=== PATIENT | male | born 1995 | race Caucasian/White ===

== ENCOUNTER 2021-07-27 18:05 | Emergency (ER) | payer MEDICAID ==
[~2021-07-27] VITALS: Ht 180.3 cm; Wt 76.0 kg
[2021-07-27 19:42] LABS: BASOPHILS % (AUTO) 0.4 % (0-1); EOSINOPHILS % (AUTO) 0.4 % (0-6); HEMATOCRIT 41.8 % (42.0-52.0); HEMOGLOBIN 14.1 g/dl (14.0-17.9); LYMPHOCYTES # (AUTO) 1.8 X10'3 (1.1-4.8); LYMPHOCYTES % (AUTO) 20.7 % (21-51); MEAN CORPUSCULAR HEMOGLOBIN 30.7 PG (27.0-31.0); MEAN CORPUSCULAR HGB CONC 33.8 g/dL (33.0-36.5); MEAN CORPUSCULAR VOLUME 90.7 FL (78-98); MEAN PLATELET VOLUME 8.3 FL (7.4-10.4); MONOCYTES # (AUTO) 0.6 X10'3 (0-0.9); MONOCYTES % (AUTO) 6.6 % (2-12); NEUTROPHILS # (AUTO) 6.3 X10'3 (1.8-7.7); NEUTROPHILS % (AUTO) 71.9 % (42-75); PLATELET COUNT 302 X10'3 (140-440); RED BLOOD COUNT 4.61 X10'6 (4.70-6.10); RED CELL DISTRIBUTION WIDTH 12.3 % (11.5-14.5); WHITE BLOOD COUNT 8.8 X10'3 (4.5-11.0)
[2021-07-27 19:47] LABS: CLARITY,URINE CLEAR (Clear); COLOR,URINE YELLOW (Yellow); GLUCOSE, URINE NEGATIVE (Neg); KETONES,URINE NEGATIVE (Neg); LEUKOCYTE ESTERASE ,URINE NEGATIVE (Neg); NITRITES, URINE NEGATIVE (Neg); OCCULT BLOOD,URINE NEGATIVE (Neg); PROTEIN,URINE NEGATIVE (Neg); UROBILINOGEN,URINE 0.2 E.U/dL (0.2-1.0)
[2021-07-27 19:49] LABS: UA COLLECTION TYPE CLN CATCH MIDSTREAM
[2021-07-27 19:57] LABS: ALANINE AMINOTRANSFERASE 36 U/L (12-78); ALBUMIN 4.2 G/DL (3.4-5.0); ALBUMIN/GLOBULIN RATIO 1.2 (1.1-1.5); ALKALINE PHOSPHATASE 106 IU/L (46-116); ANION GAP 8 (8-16); ASPARTATE AMINO TRANSFERASE 15 U/L (10-37); BILIRUBIN,TOTAL 0.4 MG/DL (0.1-1.0); BLOOD UREA NITROGEN 6 MG/DL (7-18); BUN/CREATININE RATIO 6.8 (5.4-32.0); CALCIUM 8.8 MG/DL (8.5-10.1); CHLORIDE 104 MMOL/L (99-107); CREATININE 0.88 MG/DL (0.60-1.10); GLUCOSE 106 MG/DL (70-104); POTASSIUM 3.4 MMOL/L (3.5-5.1); SODIUM 142 MMOL/L (135-145); TOTAL CARBON DIOXIDE 30.1 MMOL/L (24-32); TOTAL PROTEIN 7.6 G/DL (6.4-8.2); eGFR > 90 ML/MIN
[2021-07-27 21:48] LABS: URINE AMPHETAMINE SCREEN NEGATIVE (Neg); URINE BARBITUATE SCREEN NEGATIVE (Neg); URINE BENZODIAZEPINES SCREEN NEGATIVE (Neg); URINE CANNABINOID SCREEN NEGATIVE (Neg); URINE COCAINE SCREEN NEGATIVE (Neg); URINE METHADONE SCREEN NEGATIVE (Neg); URINE OPIATE SCREEN NEGATIVE (Neg); URINE PHENCYCLIDINE SCREEN NEGATIVE (Neg)
[2021-07-28] MEDS ORDERED: traZODone 50mg tablet PO ONE ×2 (00:30→21:15)
--- NOTE | 2021-07-28 00:55 | NUR ---
PT ARRIVED FROM [facility] ACCOMPANIED BY HIS MOTHER. PT STATES HE IS HAVING S/I W/PLAN TO SHOOT HIMSELF, HOWEVER HE HAS NO GUNS. PT REPORTS HE HASNT SLEPT MORE THE A COUPLE OF HOURS OVER THE PAST FEW DAYS AND IS CURRENTLY NOT TAKING ANY MEDS. PT REQUESTS TO READ AND REPORTS ANXIETY. PT STATES HE HAS TAKEN XANAX FOR ANXIETY BUT NOT RECENTLY.
[2021-07-28] MEDS ORDERED: NO HOME MEDS (00:59)
--- NOTE | 2021-07-28 03:58 | NUR ---
PT CHANGED INTO GREEN SCRUBS SHORTLY AFTER ARRIVING FROM [facility] ER AND PTS MOTHER LEFT. PT TOOK TRAZODONE PRN AND WENT TO SLEEP. HE CONTINUES TO BE SLEEPING RR EVEN AND UNLABORED VISIBLE RISE AND FALL OF CHEST NOTED.
--- NOTE | 2021-07-28 06:02 | NUR ---
PT ASLEEP IN BED RR EVEN AND UNLABORED
--- NOTE | 2021-07-28 07:50 | NUR ---
REPORT RECEIVED FROM RASHAD BAUTISTA. PATIENT RECEIVED SLEEPING IN HIS BED WITH NO S/S OF DISTRESS. NOTED RISE AND FALL OF CHEST. WILL CONTINUE TO MONITOR.
--- NOTE | 2021-07-28 08:36 | NUR ---
PACKET FAXED TO [facility] OFFICE
--- NOTE | 2021-07-28 09:30 | NUR ---
PATIENT WAS RECEPTIVE TO 1:1 ASSESSMENT. HE CONSUMED APPROXIMATLEY 25% OF HIS BREAKFAST TRAY AND WAS PROVIDED [facility] SNACKS AND ALTERNATIVES. PATIENT REPORTED "SEVERE ANXIETY AND INSOMNIA" X1 MONTH. PATIENT REPORTING THAT HIS ANXIETY HAS BEEN CAUSING HIM TO FEEL SUICIDAL. PATIENT ALSO ENDORSED THAT HE DOES NOT FEEL COMFORTABLE GOING HOME AT THIS TIME. HE IS CALM AND COOPERATIVE WITH NO S/S OF DISTRESS. PATIENT NOTED SITTING IN HIS ROOM AT THIS TIME EATING SNACKS THAT WERE PROVIDED. WILL CONTINUE TO MONITOR.
--- NOTE | 2021-07-28 10:07 | NUR ---
PATIENT BEING EVALUATED BY [facility] AT THIS TIME
--- NOTE | 2021-07-28 11:35 | NUR ---
PATIENT OBSERVED AMBULATING TO AND FROM THE RESTROOM WITH A STEADY GAIT. HE RETREATED BACK TO HIS BED AND IS OBSERVED SLEEPING AT THIS TIME. NO S/S OF DISTRESS. RESPIRATIONS EVEN, UNLABORED. WILL CONTINUE TO MONITOR.
--- NOTE | 2021-07-28 13:20 | NUR ---
PATIENT AWOKE FOR LUNCH AND WAS OBSERVED SITTING IN HIS ROOM EATING. HE CONTINUES TO PRESENT CALM, QUIET, AND COOPERATIVE WITH CARE. NO COMPLAINTS OR CHANGES NOTED.
--- NOTE | 2021-07-28 14:11 | NUR ---
BRIAN HENNESSY CALLED AT THIS TIME FOR [id number] REGARDING POSSIBLE PLACEMENT OF PATIENT.
--- NOTE | 2021-07-28 15:00 | NUR ---
PATIENT WAS ACCEPTED TO [facility] AT 1415 BY ALVA CRONIN. PATIENT TO BE PICKED UP BY [facility] ON 07/29/21 AT APPROXIMATELY 0830.
--- NOTE | 2021-07-28 15:26 | NUR ---
PATIENT OBSERVED AMBULATING TO AND FROM THE RESTROOM. HE RETREATED BACK TO HIS ROOM AND IS OBSERVED EATING A SNACK AT THIS TIME. WILL CONTINUE TO MONITOR.
--- NOTE | 2021-07-28 16:10 | NUR ---
PATIENT'S MOTHER IS VISITING AT BEDSIDE AT THIS TIME
[2021-07-28] MEDS ORDERED: acetaminophen 325mg tablet PO ONE (17:30)
--- NOTE | 2021-07-28 17:30 | NUR ---
PATIENT CONTINUES VISITING WITH HIS MOTHER AT BEDSIDE WITH NO S/S OF DISTRESS. PATIENT IS CALM AND COOPERATIVE. NO COMPLAINTS OR CHANGES NOTED AT THIS TIME. WILL CONTINUE TO MONITOR.
--- NOTE | 2021-07-28 19:12 | NUR ---
The patient is resting on his bed after visiting with his mother who has gone for the evening. Discussed plan for him to be transferred to [facility] in the AM. Reports moderate anxiety. Reports currently is not having suicidal thoughts.
--- NOTE | 2021-07-28 20:24 | NUR ---
The patient appears to be sleeping
--- NOTE | 2021-07-28 22:07 | NUR ---
The patient appears to be sleeping
--- NOTE | 2021-07-28 23:30 | NUR ---
The patient appears to be sleeping
--- NOTE | 2021-07-29 00:57 | NUR ---
The patient appears to be sleeping
--- NOTE | 2021-07-29 02:17 | NUR ---
The patient appears to be sleeping
--- NOTE | 2021-07-29 03:58 | NUR ---
The patient appears to be sleeping
--- NOTE | 2021-07-29 04:58 | NUR ---
The patient appears to be sleeping
[2021-07-29 05:11] VITALS: BP 137/91
--- NOTE | 2021-07-29 07:00 | NUR ---
Pt appears to be sleeping. RR even and unlabored.
[2021-07-29] MEDS ORDERED: olanzapine 10mg tablet PO SCH (08:00)
--- NOTE | 2021-07-29 08:15 | NUR ---
Pt ate 25% of his breakfast then went back to sleep.
--- NOTE | 2021-07-29 09:00 | NUR ---
Pt transferred to [facility] via [facility] commercial collections driver from [facility]. All personal belongings inventoried and returned to pt. Original [id number] given to the commercial collections driver.
== END 2021-07-29 09:00 | disposition still patient (30) ==
LOC: ER 18:05
DX: R45.851 Suicidal ideations (principal); Z20.822 Contact with and (suspected) exposure to COVID-19; K52.9 Noninfective gastroenteritis and colitis, unspecified; F41.9 Anxiety disorder, unspecified; F32.A Depression, unspecified; F17.200 Nicotine dependence, unspecified, uncomplicated
CPT/HCPCS: 36415; 80053; 80305; 81003; 84443; 85025; 87811; 99285